=== PATIENT | male | born 1960 | race Caucasian/White ===

== ENCOUNTER 2020-04-05 09:57 | Emergency (ER) | payer OTHER ==
[~2020-04-05] VITALS: Ht 182.9 cm; Wt 90.7 kg
[2020-04-05 10:05] VITALS: BP 148/80
[2020-04-05] MEDS ORDERED: ANTIVERT ONE (10:08)
--- NOTE | 2020-04-05 10:08 | NUR ---
ARRIVAL PATIENT ARRIVED TO ED4 VIA W/C, C/O OF DIZZINESS FOR THE PAST 35 TO 45 MINUTES, PATIENT DENIES CHEST PAIN ON ASSESSMENT BUT DOES HAVE A CARDIAC HISTORY, DIZZINESS ON POSITION CHANGE NOTED, TRUMPET TEACHER APPLIED AND VITAL SIGNS OBTAINED, DOCTOR FOSTER TO ROOM TO SEE PATIENT.
[2020-04-05] MEDS ORDERED: ANTIVERT PO STA (10:10)
--- NOTE | 2020-04-05 10:18 | ER.PDOC ---
General Chief Complaint: Dizziness Stated Complaint: CP,SOB,DIZZINESS Time seen by MD: 10:02 Source: patient Exam Limitations: no limitations History of Present Illness Initial Comments Pt c/o dizziness that started with him standing up from seated position. 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 [place] nauseated at one point. Symptoms worsen with movements. Occurred: just prior to arrival Context: No hearing loss, light-headedness, ear pain. NO weakness or numbness reported Severity: mild Associated Symptoms: spinning, vague Usually: walks w/o assistance Prior symptoms/Treatment: No Similar symptoms previous, No Recenly Seen, No Treated by Doctor Allergies: Coded Allergies: No Known Allergies (Unverified , 04/05/20) Past Medical History Medical History: cardiac problems, diabetes, GERD Surgical History: appendectomy, stent Family History Significant Family History: no pertinent family hx Social History Alcohol Use: none Drug Use: none Review of Systems Constitutional: no symptoms reported; denies chills, denies fever, denies malaise Eyes: denies blindness, denies blurred vision, denies decreased acuity Ears: dizziness; denies pain, denies tinnitus, denies bloody discharge Nose: no symptoms reported Mouth: no symptoms reported Throat: no symptoms reported Respiratory: no symptoms reported Cardiovascular: no symptoms reported; denies chest pain, denies edema, denies irregular heart rate, denies lightheadedness, denies palpitations, denies syncope Gastrointestinal: see HPI; denies abdominal pain, denies diarrhea; nausea; denies vomiting Genitourinary: no symptoms reported Musculoskeletal: no symptoms reported Skin: no symptoms reported All Other Systems: Reviewed and Negative Physical Exam General Appearance: alert, no distress EENT: nml eye inspection, PERRL Neck: supple Respiratory: no resp distress, breath sounds nml, resp distress CVS: reg rate & rhythm, heart sounds.nml Abdomen: non-tender, no organomegaly Skin: no rash, warm/dry Extremities: non-tender, nml ROM, no pedal edema Neuro/Psych: nml orientation, nml speech/cognition, nml mood/affect Cranial Nerves: nml as tested Sensorimotor: nml motor, nml sensation Comments Symptoms reproduced with lowering/elevation of head of bed. Results/Orders Results/Orders Orders - EVAN PILLAI DO Cbc With Auto Diff (04/05/20 10:10) Comprehensive Metabolic Panel (04/05/20 10:10) Ct Head Wo Contrast (04/05/20 10:10) Meclizine Hcl (Antivert) (04/05/20 10:10) Ekg-Routine (04/05/20 11:14) Troponin I (04/05/20 11:14) Probnp B-Type Boarder Hand (04/05/20 11:14) Xr Chest 1v (04/05/20 11:14) Vital Signs Date Time Temp Pulse Resp B/P (MAP) Pulse Ox O2 Delivery O2 Flow Rate FiO2 04/05/20 12:56 98.5 56 18 112/70 (84) 98 Room Air 04/05/20 11:44 98.5 65 18 114/73 (87) 98 Room Air 04/05/20 10:05 98.5 73 18 148/80 (102) 98 Room Air 04/05/20 10:05 98.5 73 18 98 04/05/20 10:05 98.5 73 18 Administered Medications Medications (Trade) Dose Ordered Sig/Dewayne Route PRN Reason Start Time Stop Time Status Last Admin Dose Admin Meclizine HCl (Antivert) 50 mg OT STAT PO 04/05/20 10:10 04/05/20 10:13 DC 04/05/20 10:14 50 MG Laboratory Tests Test 04/05/20 10:28 White Blood Count 3.8 10^3/uL (4.5-11.0) L Red Blood Count 4.18 10^6/uL (4.50-5.90) L Hemoglobin 13.4 g/dL (13.9-16.3) L Hematocrit 37.4 % (37.0-53.0) Mean Corpuscular Volume 89.5 fL (78-100) Mean Corpuscular Hemoglobin 32.1 pg (26-34) Mean Corpuscular Hemoglobin Concent 35.8 g/dL (33-36.5) Red Cell Distribution Width 12.5 % (11.5-14.5) Platelet Count 123 10^3/uL (150-400) L Mean Platelet Volume 10.5 fL (7.8-11.0) Neutrophils (%) (Auto) 60.2 % (41.0-85.0) Lymphocytes (%) (Auto) 28.8 % (24.0-44.0) Monocytes (%) (Auto) 8.4 % (5.0-12.0) Neutrophils # (Auto) 2.3 10^3/uL (1.8-7.7) Lymphocytes # (Auto) 1.09 10^3/uL1 (1.0-4.8) Monocytes # (Auto) 0.3 10^3/uL (0.3-0.8) Absolute Immature Granulocyte (auto 0 10^3 u/L (0-2) Absolute Eosinophils (auto) 0.1 10^3/uL (0.0-0.2) Immature Granulocytes % 0.00 % (0.00-0.50) Eosinophils % 2.1 % (0.0-5.0) Basophils % 0.5 % (0.0-0.2) H Basophils # 0.0 10^3/uL (0.0-0.1) Sodium Level 136 mmol/L (132-145) Potassium Level 3.8 mmol/L (3.6-5.2) Chloride Level 105.0 mmol/L (96-109) Carbon Dioxide Level 22.0 mmol/L (20.0-32) Anion Gap 12.8 Blood Urea Nitrogen 9 mg/dL (7-18) Creatinine 1.20 mg/dL (0.59-1.40) Estimated GFR () 75.0 (>/=60) Est GFR (CKD-EPI)(Non-Afr Libyan) 62.0 (>/=60) BUN/Creatinine Ratio 7.0 Glucose Level 202 mg/dL (70-110) H Calcium Level 8.8 mg/dL (8.4-10.5) Total Bilirubin 0.5 mg/dL (0.2-1.0) Aspartate Amino Transferase (AST) 22 U/L (0-35) Alanine Aminotransferase (ALT) 35 U/L (12-78) Alkaline Phosphatase 133 U/L (50-136) Troponin I < 0.02 ng/mL (0.00-0.05) Pro-B-Type Natriuretic Peptide 126 pg/mL (0-125) H Total Protein 6.7 g/dL (6.4-8.2) Albumin 3.7 g/dL (3.4-5.0) Globulin 3.0 Albumin/Globulin Ratio 1.233 Progress Progress 1215 - Pt ambulated in ruiz without any dizziness, says symptoms significantly better after medication. Head CT neg, symptoms better. Rhythm strip shows skipped beats with apparent p- waves present, but not consistent with 3rd degree block. 1323 - I sent Dr. Vance EKG and rhythm strips, appears that leads are not connected well, EKG nml. Adjusted connections, no further episodes seen. Also, symptoms did not occur when these episodes were seen, was only related to movement. EKG/XRAY/CT/US EKG: NSR (rate 64), OR (nml) EKG Comments: nml axis, no ST elev or depress noted ER DEPART Departure Time of Disposition: 13:26 Disposition: 01 HOME, SELF-CARE Impression: Primary Impression: Vertigo Condition: Stable Referrals: PCP,UNKNOWN (PCP) PRIMARY CARE PROVIDER Duration or Time Spent with Pa: 45 EVAN PILLAI DO Apr 05, 2020 10:18
[2020-04-05 10:32] LABS: BASOPHIL % 0.5 % (0.0-0.2); EOSINOPHIL # 0.1 10^3/uL (0.0-0.2); EOSINOPHIL % 2.1 % (0.0-5.0); LYMPHOCYTES # 1.09 10^3/uL1 (1.0-4.8); LYMPHOCYTES % 28.8 % (24.0-44.0); MEAN CORP HGB 32.1 pg (26-34); MONOCYTES # 0.3 10^3/uL (0.3-0.8); MONOCYTES % 8.4 % (5.0-12.0); NEUTROPHIL # 2.3 10^3/uL (1.8-7.7); NEUTROPHILS % 60.2 % (41.0-85.0); PLATELET COUNT 123 10^3/uL (150-400); RED CELL DISTRIBUTION WIDTH 12.5 % (11.5-14.5)
--- NOTE | 2020-04-05 10:45 | NUR ---
CAT SCAN PATIENT TO CAT SCAN WITH LATRICIA FROM RADIOLOGY.
[2020-04-05 10:55] LABS: CALCIUM 8.8 mg/dL (8.4-10.5)
--- NOTE | 2020-04-05 11:07 | NUR ---
STATUS RADIOLOGY LATRICIA CALLED, HAVING TROUBLE WITH SENDING IMAGES, WILL LET THE ED KNOW WHEN THE PROBLEMS IS FIXED
--- NOTE | 2020-04-05 11:25 | PCM.EKG ---
[facility] Test Date: 2020-04-05 Test Time: 11:19:39 Pat Name: SKYLER LIN Department: [id number] Room: Gender: M Adult Care Manager: CHARLIE : 1960 Requested By: EVAN PILLAI Order Number: [id number] Reading MD: Evan Pillai Measurements Intervals [place] Rate: 64 P: 48 RI: 201 QRS: 49 QRSD: 88 T: 57 QT: 396 QTc: 409 Interpretive Statements Sinus rhythm No previous ECG available for comparison Electronically Signed On 04-06-2020 2:58:19 CDT by Evan Pillai Please click the below link to view image of tracing.
[2020-04-05 11:44] VITALS: BP 114/73
--- NOTE | 2020-04-05 12:00 | NUR ---
STATUS CONTINUE TO AWAIT CAT SCAN REPORT, RADIOLOGY STILL UNABLE TO SEND.
--- NOTE | 2020-04-05 12:27 | DIREP ---
PROCEDURE:CHEST 1 VIEW COMPARISON:None. INDICATIONS:dizziness FINDINGS: LUNGS/PLEURA:No focal consolidation, pleural effusion, or pneumothorax. VASCULATURE:Normal. Unremarkable pulmonary vasculature. CARDIAC:Normal. No cardiac silhouette abnormality or cardiomegaly. MEDIASTINUM:Normal. No visible mass or adenopathy. BONES:Degenerative change without evidence of acute osseus abnormality. OTHER:EKG leads overlie the chest. CONCLUSION: 1. No acute cardiopulmonary process. Dictated by: Jarrett Bowman MD on 04/05/2020 at 12:26 PM
--- NOTE | 2020-04-05 12:30 | DIREP ---
PROCEDURE:CT HEAD OR BRAIN W/O CONTRAST COMPARISON:None. INDICATIONS:acute onset dizziness TECHNIQUE:CT images were created without intravenous contrast. FINDINGS: VENTRICLES:The ventricles are normal in size and configuration. CEREBRUM:Normal cerebral morphology with appropriate lee white matter differentiation. CEREBELLUM:Negative. BRAINSTEM:Negative. BASAL CISTERNS:Negative. HEMORRHAGE:No MASS LESION:No ACUTE INFARCT:No SKULL:Normal. SINUSES:Normal. OTHER:None CONCLUSION:Normal examination. Dictated by: Keyur Alberts MD on 04/05/2020 at 12:28 PM
--- NOTE | 2020-04-05 12:39 | NUR ---
DOROTA PILLAI ATTEMPTING TO CALL DOCTOR BUSTOS, LEFT MESSAGE.
[2020-04-05 12:56] VITALS: BP 112/70
--- NOTE | 2020-04-05 13:01 | NUR ---
JULI PILLAI ON THE PHONE WITH DOCTOR BUSTOS DISCUSSING PATIENT.
[2020-04-05 13:23] VITALS: BP 116/70
== END 2020-04-05 13:27 | disposition home or self-care (01) ==
LOC: ER 09:57
DX: R42 Dizziness and giddiness (principal); R11.0 Nausea; E11.9 Type 2 diabetes mellitus without complications; K21.9 Gastro-esophageal reflux disease without esophagitis
CPT/HCPCS: 36415; 70450; 71045; 80053; 83880; 84484; 85025; 93005; 99285; J8597